=== PATIENT | female | born 1990 | race Caucasian/White ===

== ENCOUNTER 2018-09-23 12:19 | Emergency (ER) | payer OTHER, MEDICAID ==
[2018-09-23 13:06] LABS: ADD MAN DIFF? NO
[2018-09-23 13:11] LABS: BASOPHILS % 0.4 % (0.0-2.0); EOSINOPHILS # 0.2 10^3/ul (0.0-0.5); EOSINOPHILS % 2.2 % (0.0-7.0); HEMATOCRIT 36.5 % (37.0-47.0); HEMOGLOBIN 12.5 g/dl (12.0-16.0); MEAN CORPUSCULAR HEMOGLOBIN 31.2 pg (29.0-33.0); MEAN CORPUSCULAR HGB CONC 34.2 g/dl (32.0-37.0); MEAN PLATELET VOLUME 9.3 fl (7.4-10.4); MONOCYTE # 0.6 10^3/ul (0.3-0.9); MONOCYTES % 7.7 % (0.0-11.0); NEUTROPHIL # 4.9 10^3/ul (1.6-7.5); NEUTROPHILS % 63.4 % (39.0-77.0); PLATELET COUNT 308 10^3/UL (140-415); RED BLOOD COUNT 4.01 10^6/ul (4.20-5.40); RED CELL DISTRIBUTION WIDTH 11.4 % (11.5-14.5)
[2018-09-23 13:11] LABS: WHITE BLOOD COUNT 7.8 10^3/ul (4.8-10.8)
[2018-09-23 13:21] LABS: ADD UMIC NO; UR ASCORBIC ACID 20 mg/dL (NEGATIVE); UR BILIRUBIN (Dip) NEGATIVE (NEGATIVE); UR BLOOD (Dip) NEGATIVE (NEGATIVE); UR CLARITY CLEAR (CLEAR); UR COLOR YELLOW (YELLOW); UR GLUCOSE (Dip) NEGATIVE (NEGATIVE); UR KETONES (Dip) NEGATIVE (NEGATIVE); UR LEUKOCYTE ESTERASE (Dip) NEGATIVE Leu/ul (NEGATIVE); UR NITRITE (Dip) NEGATIVE (NEGATIVE); UR SPECIFIC GRAVITY (Dip) 1.014 (1.003-1.030); UR TOTAL PROTEIN (Dip) NEGATIVE (NEGATIVE); UR UROBILINOGEN (Dip) NEGATIVE (NEGATIVE)
== END 2018-09-23 15:39 | disposition home or self-care (01) ==
LOC: FTE 12:19
DX: O20.9 Hemorrhage in early pregnancy, unspecified (principal); Z3A.01 Less than 8 weeks gestation of pregnancy
CPT/HCPCS: 36415; 76801; 76817; 81003; 84702; 85025; 86900; 86901; 99284-25

== ENCOUNTER 2018-09-24 09:03 | Emergency (ER) | payer OTHER ==
[2018-09-24] MEDS: SOD CHLORIDE 0.9% 1,000 ML IV (09:50)
[2018-09-24] MEDS: ACETAMINOPHEN 325 MG TAB PO (09:51)
[2018-09-24 09:58] LABS: ADD MAN DIFF? NO
[2018-09-24 10:00] LABS: WHITE BLOOD COUNT 11.8 10^3/ul (4.8-10.8)
[2018-09-24 10:00] LABS: BASOPHILS % 0.2 % (0.0-2.0); EOSINOPHILS # 0.1 10^3/ul (0.0-0.5); EOSINOPHILS % 1.1 % (0.0-7.0); HEMATOCRIT 36.5 % (37.0-47.0); HEMOGLOBIN 12.4 g/dl (12.0-16.0); LYMPHOCYTES # 2.1 10^3/ul (0.8-2.9); LYMPHOCYTES % 17.9 % (15.0-51.0); MEAN CORPUSCULAR HEMOGLOBIN 30.8 pg (29.0-33.0); MEAN CORPUSCULAR VOLUME 90.8 fl (82.0-101.0); MEAN PLATELET VOLUME 9.4 fl (7.4-10.4); MONOCYTE # 0.6 10^3/ul (0.3-0.9); MONOCYTES % 5.2 % (0.0-11.0); NEUTROPHIL # 8.9 10^3/ul (1.6-7.5); NEUTROPHILS % 75.3 % (39.0-77.0); PLATELET COUNT 310 10^3/UL (140-415); RED BLOOD COUNT 4.02 10^6/ul (4.20-5.40); RED CELL DISTRIBUTION WIDTH 11.7 % (11.5-14.5)
[2018-09-24 11:30] LABS: UR CLARITY BLOODY (CLEAR); UR COLOR RED (YELLOW)
[2018-09-24 11:31] LABS: UR GLUCOSE (Dip) NEGATIVE (NEGATIVE); UR TOTAL PROTEIN (Dip) NEGATIVE (NEGATIVE)
[2018-09-24 11:32] LABS: UR BILIRUBIN (Dip) TRACE (Tr) mg/dL (NEGATIVE); UR BLOOD (Dip) 3+ mg/dL (NEGATIVE); UR KETONES (Dip) 3+ mg/dL (NEGATIVE); UR NITRITE (Dip) NEGATIVE (NEGATIVE)
[2018-09-24 11:33] LABS: UR ASCORBIC ACID NEGATIVE (NEGATIVE); UR LEUKOCYTE ESTERASE (Dip) NEGATIVE Leu/ul (NEGATIVE); UR UROBILINOGEN (Dip) 4.0 E.U./dL mg/dL (NEGATIVE); URINE RBCS >200 /HPF (0)
[2018-09-24 11:34] LABS: UR BACTERIA FEW /HPF (NONE SEEN); UR MUCUS FEW /HPF (NONE SEEN); UR SQUAMOUS EPITHELIAL CELL RARE /HPF (FEW)
[2018-09-24 11:37] LABS: ADD UMIC YES
== END 2018-09-24 13:28 | disposition home or self-care (01) ==
LOC: FTE 09:03
DX: O20.9 Hemorrhage in early pregnancy, unspecified (principal); Z3A.00 Weeks of gestation of pregnancy not specified
CPT/HCPCS: 36415; 76801; 81001; 84702; 85025; 87086; 88305; 96360; 99285-25